=== PATIENT | male | born 1975 ===

== ENCOUNTER 2017-02-21 18:08 | Emergency (ER) | payer OTHER ==
[2017-02-21] MEDS ORDERED: HYDROmorphone 0.5 MG/0.5 ML Syringe IVPUSH ONE ×2 (18:31→20:18)
[2017-02-21] MEDS ORDERED: Sodium Chloride 0.9% 1,000 ML IV ONE (18:31)
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
[2017-02-21] MEDS ORDERED: Iopamidol 755 Mg/ML 100 ML Bottle IVPUSH ONE (18:38)
[2017-02-21] MEDS: Sodium Chloride 0.9% 10 ML Syringe FLUSH PRN ×2 (18:45→19:02)
--- NOTE | 2017-02-21 19:29 | CT ---
CT abdomen and pelvis Technique: Multiple axial sections were obtained from above the dome of the diaphragm inferiorly through the pubic symphysis. Delayed images were also obtained through the bladder as well as through the kidneys. Comparison: No prior abdominal imaging. Findings: Fracturing is seen within the mid and lower kidney. There is fracturing by greater than 1 cm with no definite extravasation of any contrast. Findings are felt compatible with a grade 3 renal injury. Subcapsular and extracapsular blood is seen. Right kidney appears unremarkable. Visualized lung bases are clear. Liver appears unremarkable. Spleen shows a low density abnormality within the inferior aspect compatible hematoma consistent with grade 1 injury. Spleen is otherwise unremarkable. Pancreas is within normal limits. Gallbladder appears without calcified gallstones. Adrenal glands show no nodule. Aorta shows no aneurysmal dilatation. No retroperitoneal adenopathy or mesenteric abnormalities are seen no pelvic mass or adenopathy is seen. Appendix felt to be seen and appears normal. No free fluid is seen within the pelvis. Impression: 1. Fracturing of the kidney in several areas within the mid and lower kidney. Subcapsular hematoma is seen as well as extracapsular hematoma. No extravasation of contrast is seen on the delayed images and findings are felt compatible with a grade 3 injury. 2. Small hematoma within the inferior spleen compatible with grade 1 injury. 3. No additional abnormality is seen on CT study of the abdomen and pelvis. Diagnostic code #5
[2017-02-21] MEDS ORDERED: Ondansetron 4 MG/2 ML SDV IVPUSH ONE (19:39)
--- NOTE | 2017-02-24 06:46 | CR ---
Chest: Portable view of the chest was obtained. Comparison: No prior chest x-ray. Heart size and mediastinum are within normal limits. Lungs are clear. Bony structures are grossly intact. Impression: 1. Nothing acute is identified on portable chest x-ray. Diagnostic code #1
== END 2017-02-21 20:25 ==
LOC: JD.ED 18:08
DX: S37.092A Other injury of left kidney, initial encounter (principal); S36.029A Unspecified contusion of spleen, initial encounter; Z88.0 Allergy status to penicillin; Z93.6 Other artificial openings of urinary tract status; W22.8XXA Striking against or struck by other objects, initial encounter; Y99.0 Civilian activity done for income or pay
CPT/HCPCS: 36415; 71010; 74177; 80053; 85025; 85610; 85730; 86850; 86900; 86901; 96361; 96374; 96375; 96376; 99285; J1170; J2405; J7040; J7050; Q9967

== ENCOUNTER 2022-12-21 06:48 | Emergency (ER) | payer BC, OTHER ==
[2022-12-21 08:06] LABS: BASOPHILS PERCENT AUTO 0.3 % (0.0-1.0); EOSINOPHILS PERCENT AUTO 0.1 % (0.0-6.0); HEMATOCRIT 38.3 % (42.0-52.0); IMMATURE GRAN ABSOLUTE AUTO 0.04 K/mm3 (0.00-0.05); IMMATURE GRAN PERCENT AUTO 0.5 % (0.0-0.4); LYMPHOCYTES ABSOLUTE AUTO 0.9 K/mm3 (1.0-4.8); LYMPHOCYTES PERCENT AUTO 11.8 % (24.0-44.0); MEAN CORPUSCULAR HEMOGLOBIN 30.6 pg (28.0-32.0); MEAN CORPUSCULAR HGB CONC 33.9 g/dl (32.0-36.0); MEAN CORPUSCULAR VOLUME 90.1 fl (83.0-99.0); MEAN PLATELET VOLUME 8.9 fl (9.4-12.4); MONOCYTES ABSOLUTE AUTO 0.9 K/mm3 (0.0-0.8); MONOCYTES PERCENT AUTO 11.1 % (0.0-8.0); NEUTROPHILS PERCENT AUTO 76.2 % (41.0-71.0); PLATELET COUNT,PLT 242 K/mm3 (150-400); RED BLOOD CELL COUNT 4.25 M/mm3 (4.52-5.90); WHITE BLOOD CELL COUNT,WBC 7.87 K/mm3 (3.9-11.3)
[2022-12-21 08:15] LABS: A/G RATIO 0.8 (1-2); ALANINE AMINOTRANSFERASE,ALT 44 U/L (16-63); ALBUMIN 3.1 g/dl (3.4-5.0); ALKALINE PHOSPHATASE 50 U/L (46-116); ANION GAP 14.4 (5-15); ASPARTATE AMNIOTRANSFERASE,AST 17 U/L (15-37); BILIRUBIN TOTAL 0.5 mg/dL (0.2-1.0); BLOOD UREA NITROGEN,BUN 16 mg/dL (7-18); CALCIUM 8.8 mg/dL (8.5-10.1); CARBON DIOXIDE,CO2 27 mEq/L (21-32); CHLORIDE,CL 103 mEq/L (98-107); CREATININE 0.8 mg/dL (0.7-1.3); ESTIMATED GFR 111 mL/min (>60); GLUCOSE RANDOM 141 mg/dL (70-99); POTASSIUM,K 3.4 mEq/L (3.5-5.1); PROTEIN TOTAL,TP 7.2 g/dl (6.4-8.2); SODIUM,NA 141 mEq/L (136-145)
== END 2022-12-21 09:55 | disposition home or self-care (01) ==
LOC: JD.ED 06:48
DX: B08.4 Enteroviral vesicular stomatitis with exanthem (principal); Z88.0 Allergy status to penicillin
CPT/HCPCS: 36415; 80053; 85025; 86140; 99283

== ENCOUNTER 2024-03-18 17:52 | Emergency (ER) | payer BC ==
[2024-03-18] MEDS: Diphtheria,Pertussis(Acell),Tetanus Vaccine 0.5 ML Syringe IM ONE (19:22)
[2024-03-18] MEDS: Lidocaine 1% 10 ML MDV INJECT ONE (19:23)
== END 2024-03-18 19:25 | disposition home or self-care (01) ==
LOC: JD.ED 17:52
DX: S61.211A Laceration without foreign body of left index finger without damage to nail, initial encounter (principal); Z88.0 Allergy status to penicillin; W26.0XXA Contact with knife, initial encounter; Z23 Encounter for immunization
CPT/HCPCS: 12001; 90471; 90715; 99282-25; J3490